=== PATIENT | female | born 1960 | race Caucasian/White ===

== ENCOUNTER 2020-05-31 10:42 | Inpatient (IN) ==
[~2020-05-31 10:42] MED LIST: Buffered Lidocaine 1% SYRIN 1 ml INTRADERM ONE; Dexamethasone IV 4 MG/ML VIAL 1 ml VIAL IV SLOW PU ONE; Lactated Ringers 1000 ml BAG 1,000 ML IV SCH
[2020-05-31] MEDS ORDERED: ceFAZolin 1 GM ADVAN 1 GM ADDV.VIAL IVPB ONE (11:06)
[2020-05-31] MEDS ORDERED: ceFAZolin 2 GM PREMIX 2 GM/50 ML BAG ONE (11:06)
[2020-05-31] MEDS ORDERED: Buffered Lidocaine 1% SYRIN 1 ml INTRADERM ONE (11:06)
[2020-05-31] MEDS ORDERED: Dexamethasone IV 4 MG/ML VIAL 1 ml VIAL ONE (11:06)
[2020-05-31] MEDS ORDERED: Ropivacaine 5 MG/ML 20 ML VIAL 0.5% (100 MG) ONE ×2 (13:00→13:10)
[2020-05-31] MEDS ORDERED: Midazolam 2 mg/2 ml VIAL 1 mg/ml 2 ml VIAL (2 mg) ONE ×2 (13:08→13:24)
[2020-05-31] MEDS ORDERED: Lidocaine 2% PF 10 ML AMP ONE (13:10)
[2020-05-31] MEDS ORDERED: fentaNYL 250 mcg/5 ml 50 MCG/ML 5 ml VIAL (250 MCG) ONE (13:24)
[2020-05-31] MEDS ORDERED: Rocuronium 50 mg VIAL 10 mg/ml 5 ml VIAL (50 mg) ONE (13:24)
[2020-05-31] MEDS ORDERED: Morphine 10 MG/ML VIAL (1 ml) ONE (13:44)
[2020-05-31] MEDS ORDERED: Lactulose 30 ml UDC PO PRN (14:22)
[2020-05-31] MEDS ORDERED: Ondansetron 4 mg VIAL 2 MG/ML 2 ml VIAL IV PRN ×2 (14:22→15:41)
[2020-05-31] MEDS ORDERED: Magnesium Hydroxide LIQ 30 ML UDC PO PRN (14:22)
[2020-05-31] MEDS ORDERED: Morphine 2 MG/ML SYRINGE IV PRN (14:22)
[2020-05-31] MEDS ORDERED: Ondansetron ODT 4 mg TAB 4 MG TAB PO PRN (14:22)
[2020-05-31] MEDS ORDERED: Phenylephrine IV 10 MG/ML 1 ml VIAL ONE (14:44)
[2020-05-31] MEDS ORDERED: Lactated Ringers 1000 ml BAG 1,000 ML IV SCH (15:00)
[2020-05-31] MEDS ORDERED: Propofol 10 MG/ML 20 ML BTL ONE (15:16)
[2020-05-31] MEDS ORDERED: EPHEDrine (Pressors) 50 MG/ML VIAL ONE (15:33)
[2020-05-31] MEDS ORDERED: Ondansetron 4 mg VIAL 2 MG/ML 2 ml VIAL ONE (15:35)
[2020-05-31] MEDS ORDERED: Naloxone 0.4 mg VIAL 0.4 mg/ml 1 ml VIAL IV PRN (15:41)
[2020-05-31] MEDS ORDERED: Morphine 4 MG/ML VIAL (1 ml) IV PRN (15:41)
[2020-05-31] MEDS ORDERED: fentaNYL 100 mcg/2 ml 50 MCG/ML VIAL ONE (16:34)
[2020-05-31] MEDS: fentaNYL 100 mcg/2 ml 50 MCG/ML VIAL IV PRN ×2 (16:36→17:13)
[2020-05-31] MEDS: Magnesium Hydroxide LIQ 30 ML UDC PO SCH (20:39)
[2020-05-31] MEDS: oxyCODONE/Acetamin 5/325 mg TAB PO PRN (21:56)
[2020-05-31] MEDS: ceFAZolin 1 GM ADVAN 1 GM in NS 0.9% 50 ML 50 ML IVPB SCH (21:57)
[2020-06-01] MEDS: oxyCODONE/Acetamin 5/325 mg TAB PO PRN ×2 (06:08→11:21)
[2020-06-01] MEDS: ceFAZolin 1 GM ADVAN 1 GM in NS 0.9% 50 ML 50 ML IVPB SCH ×2 (06:08→14:07)
[2020-06-01 08:07] LABS: Hematocrit 37 % (35-47); Hemoglobin 12.5 g/dL (12.0-16.0); Mean Platelet Volume 7.2 fL (7.4-10.4); Platelet Count 238 10^3/uL (150-450)
[2020-06-01 08:10] LABS: BUN/Creatinine Ratio 15.8 (8-20); EGFR African American 94.9 (>60); EGFR Non-African American 78.4 (>60); Potassium 4.6 mmol/L (3.5-5.0)
[2020-06-01] MEDS ORDERED: Vitamin THERAPEUTIC TAB PO SCH (09:00)
[2020-06-01] MEDS: Magnesium Hydroxide LIQ 30 ML UDC PO SCH (09:18)
[2020-06-01 11:21] VITALS: BP 118/68
== END 2020-06-01 15:23 | disposition home or self-care (01) | DRG 302 ==
LOC: AA 10:42 → SSU 14:22
PROVIDERS: ADMIT Orthopaedic Surgery Adult Reconstructive Orthopaedic Surgery; ATTEND Orthopaedic Surgery Adult Reconstructive Orthopaedic Surgery

== ENCOUNTER 2021-02-14 07:30 | Inpatient (IN) ==
[~2021-02-14 07:30] MED LIST changes: -Dexamethasone IV 4 MG/ML VIAL 1 ml VIAL IV SLOW PU ONE
[2021-02-14] MEDS ORDERED: ceFAZolin 1 GM ADVAN 1 GM ADDV.VIAL IVPB ONE (07:58)
[2021-02-14] MEDS ORDERED: ceFAZolin 2 GM PREMIX 2 GM/50 ML BAG ONE (07:58)
[2021-02-14] MEDS ORDERED: Ropivacaine 5 MG/ML 20 ML VIAL 0.5% (100 MG) ONE (08:31)
[2021-02-14] MEDS ORDERED: Midazolam 5 mg/5 ml VIAL 1 mg/ml 5 ml VIAL (5 mg) ONE (09:01)
[2021-02-14] MEDS ORDERED: fentaNYL 100 mcg/2 ml 50 MCG/ML VIAL ONE (09:01)
[2021-02-14] MEDS ORDERED: Bupivacaine 0.25% SDV 30 ML ONE (09:05)
[2021-02-14] MEDS ORDERED: Lidocaine 2% PF 10 ML AMP ONE (09:06)
[2021-02-14] MEDS ORDERED: Phenylephrine IV 10 MG/ML 1 ml VIAL ONE (09:11)
[2021-02-14] MEDS ORDERED: Lidocaine 2% PF 5 ML VIAL ONE (09:11)
[2021-02-14] MEDS ORDERED: Ondansetron 4 mg VIAL 2 MG/ML 2 ml VIAL ONE (10:40)
[2021-02-14] MEDS ORDERED: Dexamethasone IV 4 MG/ML VIAL 1 ml VIAL ONE (10:40)
[2021-02-14] MEDS ORDERED: Propofol 10 MG/ML 20 ML BTL ONE (10:40)
[2021-02-14] MEDS ORDERED: Magnesium Hydroxide LIQ 30 ML UDC PO PRN (11:29)
[2021-02-14] MEDS ORDERED: diPHENhydraMINE 25 mg TAB PO PRN (11:29)
[2021-02-14] MEDS ORDERED: Morphine 2 MG/ML SYRINGE IV PRN (11:29)
[2021-02-14] MEDS ORDERED: Lactulose 30 ml UDC PO PRN (11:29)
[2021-02-14] MEDS ORDERED: Ondansetron 4 mg VIAL 2 MG/ML 2 ml VIAL IV PRN (11:29)
[2021-02-14] MEDS ORDERED: diPHENhydraMINE IV 50 MG/ML 1 ml VIAL (BENADRYL) IV PRN (11:29)
[2021-02-14] MEDS ORDERED: Ondansetron ODT 4 mg TAB 4 MG TAB PO PRN (11:29)
[2021-02-14] MEDS ORDERED: Lactated Ringers 1000 ml BAG 1,000 ML IV SCH (12:00)
[2021-02-14] MEDS: ceFAZolin 1 GM ADVAN 1 GM in NS 0.9% 50 ML 50 ML IVPB SCH (18:40)
[2021-02-14] MEDS: Magnesium Hydroxide LIQ 30 ML UDC PO SCH (20:30)
[2021-02-15] MEDS: ceFAZolin 1 GM ADVAN 1 GM in NS 0.9% 50 ML 50 ML IVPB SCH ×2 (02:05→10:33)
[2021-02-15 06:46] LABS: Hematocrit 38 % (35-47); Mean Platelet Volume 7.4 fL (7.4-10.4); Platelet Count 268 10^3/uL (150-450)
[2021-02-15 07:01] LABS: Calcium 9.2 mg/dL (8.6-10.3); Potassium 4.3 mmol/L (3.5-5.0); eGFR CKD-EPI 93.7 (>60)
[2021-02-15] MEDS: Magnesium Hydroxide LIQ 30 ML UDC PO SCH (08:23)
[2021-02-15] MEDS ORDERED: Vitamin THERAPEUTIC TAB PO SCH (09:00)
[2021-02-15 12:27] VITALS: BP 112/68
== END 2021-02-15 14:20 | disposition home or self-care (01) | DRG 302 ==
LOC: AA 07:38 → SSU 14:47
PROVIDERS: ADMIT Orthopaedic Surgery Adult Reconstructive Orthopaedic Surgery; ATTEND Orthopaedic Surgery Adult Reconstructive Orthopaedic Surgery

== ENCOUNTER 2024-02-28 08:18 | Observation (INO) ==
[~2024-02-28 08:18] MED LIST changes: -Buffered Lidocaine 1% SYRIN 1 ml INTRADERM ONE; -Lactated Ringers 1000 ml BAG 1,000 ML IV SCH; +Metoclopramide 5 MG/ML VIAL (10 mg) IV PRN; +NS 0.45% 1000 ml BAG 1,000 ML IV SCH; +Naloxone 0.4 mg VIAL 0.4 mg/ml 1 ml VIAL IV PRN; +Ondansetron 4 mg VIAL 2 MG/ML 2 ml VIAL IV PRN
[2024-02-28] MEDS ORDERED: Propofol 10 MG/ML 20 ML BTL ONE ×3 (08:30→13:12)
[2024-02-28] MEDS ORDERED: Midazolam 2 mg/2 ml VIAL 1 mg/ml 2 ml VIAL (2 mg) ONE ×2 (08:30→11:02)
[2024-02-28] MEDS ORDERED: Lidocaine 2% PF 5 ML VIAL ONE (08:30)
[2024-02-28] MEDS ORDERED: fentaNYL 100 mcg/2 ml 50 MCG/ML VIAL ONE ×2 (08:30→13:55)
[2024-02-28] MEDS ORDERED: Rocuronium 50 mg VIAL 10 mg/ml 5 ml VIAL (50 mg) ONE (08:30)
[2024-02-28] MEDS ORDERED: Scopolamine 1 mg/72hr PATCH ONE (08:45)
[2024-02-28] MEDS ORDERED: Tranexamic Acid 1 GM/100ML BAG 2,000 MG/200 ML BAG IV ONE (08:46)
[2024-02-28] MEDS ORDERED: ceFAZolin 2 GM PREMIX 2 GM/50 ML BAG ONE (08:46)
[2024-02-28 08:48] LABS: Rapid COVID-19 Molecular Undetected (Undetected)
[2024-02-28] MEDS: Scopolamine 1 mg/72hr PATCH TRANSDERM ONE (09:08)
[2024-02-28] MEDS: Buffered Lidocaine 1% SYRIN 1 ml INTRADERM ONE (09:11)
[2024-02-28] MEDS: Acetaminophen IV 1 GM/100ML 1,000 MG/100 ML BAG IV ONE (09:11)
[2024-02-28] MEDS: Lactated Ringers 1000 ml BAG 1,000 ML IV SCH ×2 (09:14→15:00)
[2024-02-28] MEDS ORDERED: ROPIVACAINE 5 MG/ML 30 ML BTL (0.5%) ONE (10:04)
[2024-02-28] MEDS ORDERED: Glycopyrrolate IV 0.2 MG/ML 1 ML VIAL ONE (11:02)
[2024-02-28] MEDS ORDERED: Ondansetron 4 mg VIAL 2 MG/ML 2 ml VIAL ONE (11:15)
[2024-02-28] MEDS ORDERED: Dexamethasone IV 4 MG/ML VIAL 1 ml VIAL ONE (11:15)
[2024-02-28] MEDS ORDERED: Sodium Chloride 0.9% 10 ML ONE (11:37)
[2024-02-28] MEDS ORDERED: Ondansetron 4 mg VIAL 2 MG/ML 2 ml VIAL IV PRN (13:46)
[2024-02-28] MEDS ORDERED: Morphine 2 MG/ML SYRINGE IV PRN (13:46)
[2024-02-28] MEDS ORDERED: Lactulose 30 ml UDC PO PRN (13:46)
[2024-02-28] MEDS ORDERED: Magnesium Hydroxide LIQ 30 ML UDC PO PRN (13:46)
[2024-02-28] MEDS ORDERED: Calcium Carb (TUMS) 500 mg CHEW TAB PO PRN (13:46)
[2024-02-28] MEDS ORDERED: Ondansetron ODT 4 mg TAB 4 MG TAB PO PRN (13:46)
[2024-02-28] MEDS: fentaNYL 100 mcg/2 ml 50 MCG/ML VIAL IV PRN (13:56)
[2024-02-28] MEDS ORDERED: HYDROmorphone 0.5 MG/0.5 ML SYRINGE ONE (14:59)
[2024-02-28] MEDS: ceFAZolin 2 GM PREMIX 2 GM/50 ML BAG IV SCH (18:06)
[2024-02-28] MEDS: Magnesium Hydroxide LIQ 30 ML UDC PO SCH (20:39)
[2024-02-29 06:20] LABS: Hematocrit 33.2 % (35-45); Hemoglobin 11.4 g/dL (11.5-14.3); Mean Platelet Volume 7.1 fL (7.5-11.2); Platelet Count 252 10^3/uL (150-450)
[2024-02-29 06:40] LABS: Calcium 8.8 mg/dL (8.6-10.3); Creatinine, Serum 0.79 mg/dL (0.51-0.95); Potassium 4.5 mmol/L (3.5-5.0); eGFR CKD-EPI 85.1 (>60)
[2024-02-29] MEDS: Vitamin THERAPEUTIC TAB PO SCH (08:15)
[2024-02-29 09:55] VITALS: BP 105/60
== END 2024-02-29 12:55 | disposition home or self-care (01) ==
LOC: SSU 08:18 → OR 08:18
PROVIDERS: ADMIT Orthopaedic Surgery Adult Reconstructive Orthopaedic Surgery; ATTEND Orthopaedic Surgery Adult Reconstructive Orthopaedic Surgery